=== PATIENT | female | born 2000 | race Caucasian/White ===

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

== ENCOUNTER 2022-03-20 12:30 | Outpatient (RCR) | payer MEDICAID, SELFPAY ==
--- NOTE | 2022-02-22 09:17 | HP.PTEVAL_ITS ---
Patient's Visit Information JENNIFER SELLERS is a 21 year old F referred to Physical Therapy by Dr. Darrin Arevalo MD with a diagnosis of Low Back Pain. Date of Evaluation: 02/22/22 Physical Therapist: Florence Garcia DPT - Visit Plan Frequency: 2x /Week Duration: 4 Weeks Plan: Focus on core s/s- lifting mechanics- TENS as needed. HEP Given IE: postural education, TA contraction, bridge, clams, prone hip extension and HS stretching 90/90 - Subjective Patient reports that she has had lower back pain for about 6 months to a year- insidious onset. She has always had back pain on/off for a long time. The pain comes and goes. Pain is located long the whole lower back. Worst: 7/10 Agg: lifting, standing to long or walking long distances. Eases: sitting down Best: 0/10. Takes about 10 min for the pain to subside once she is sitting. She describes the pain as sharp. She does have some radiating pain to the left thigh but it doesn't happen that often only 1-2x in the past 6 months to a year. No N/T in the toes. No change or loss of bowel or bladder. She has no history of trauma that she can remember. Sleep: not disturbed- no specific position. 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 They did x-rays which were negative. She plays soccer and softball on recreational teams- no lifting- no pain with sports. PMHx/Meds: no changes since urgent care visit 02/04. - Objective Posture: FH, RS- can correct with verbal and tactile cues but does not maintain.. HR/TR: able without UE A. SLS: Left: 30 sec bilateral. ROM: WFL- pain with SB bilateral and extension comes from L2-3 and is sore. Sensation/Reflex: WFL. Strength: Core: poor, Hip: 4/5 throughout, Knee/Ankle: 5/5. Flex: HS: severe, Gastroc: moderate. Palpation: tender along lumbar spine, paraspinals, gluts Special Test: LLD: negative, Pelvic Alignment: WFL - Special Tests L/S Slump test left side: Negative L/S Slump test right side: Negative L/S Left Straight Leg Raise: Negative L/S Right Straight Leg Raise: Negative - Balance/Special Test Scores Oswestry Low Back Score: 7 - Goals Goal 1:: Patient will be I with HEP and progression Goal Time Frame: 4-6 Weeks Goal 2:: Patient will maintain proper posture t/o tx session to demo increased core s/s Goal Time Frame: 4-6 Weeks Goal 3:: Patient will demo proper lifting mechanics Goal Time Frame: 4-6 Weeks Goal 4:: Patient will report 80% improvement Goal Time Frame: 4-6 Weeks - Rehabilitation Potential Physical Therapy Diagnosis: Patient presents with hypomobility- she has decreased LE and core strength/stabilization, flex and muscular endurance leading to poor posture, improper lifting mechanics and pain with ADL's. Rehabilitation Potential: Good - Anticipated Interventions Patient/Client Instruction: Educate patient on: Benefits of Fitness Program Therapeutic Exercise to Include: Strength training, Endurance training, Balance training, Coordination, Agility training, Body mechanics, Postural training, Flexibilty training, Gait and locomotor training, Neuromotor development, Dynamic Lumbar Stabilization, Scapular Strength/Stabilization For the Purpose of:: To improve muscle performance and motor function TENS: Yes Cryotherapy (ice pack, ice massage): Yes Thermo therapy (hot pack): Yes Ultrasound (thermal/non thermal): Yes For the Purpose of:: To improve muscle performance and motor function Thank you for the opportunity to evaluate your patient. For Medicare and Medicare HMO plans, please review the plan of care and approve it. It will need to be FAXED BACK to us at [phone] for Medicare purposes. For Medicare only, by signing this I certify the plan of care. Please let me know if there are questions or concerns regarding this plan of care. Physician Signature: Date:
--- NOTE | 2022-08-16 07:30 | HP.PT.NRP ---
JENNIFER SELLERS was seen in my office for initial evaluation on 02/22/22. The following Plan of Care was established for this patient: Initial Frequency: 2x /Week Initial Duration: 4 Weeks Patient/Client Instruction: Educate patient on: Benefits of Fitness Program Therapeutic Exercise to Include: Strength training, Endurance training, Balance training, Coordination, Agility training, Body mechanics, Postural training, Flexibilty training, Gait and locomotor training, Neuromotor development, Dynamic Lumbar Stabilization, Scapular Strength/Stabilization For the Purpose of:: To improve muscle performance and motor function TENS: Yes Cryotherapy (ice pack, ice massage): Yes Thermo therapy (hot pack): Yes Ultrasound (thermal/non thermal): Yes For the Purpose of:: To improve muscle performance and motor function This patient was last seen in our office . Pertinent comments regarding their Physical therapy will appear below: Patient has not attended physical therapy in over 30 days- appropriate to be discharged and return to the MD as needed. At this point I will be discontinuing this patient from physical therapy. I would be happy to see this patient again in the future if found appropriate by the physician. Thank you! Florence Garcia, SENDYT Balance/Gait/Functional tests - Balance/Special Test Scores Oswestry Low Back Score: 7
== END 2022-03-20 19:00 | disposition home or self-care (01) ==
LOC: PT 12:30
PROVIDERS: PCP Pediatrics; Referring Provider Pediatrics; Visit Provider Pediatrics
DX: G89.29 Other chronic pain; M54.42 Lumbago with sciatica, left side
CPT/HCPCS: 97014; 97032; 97110; 97161; G0283